=== PATIENT | male | born 1970 | race Caucasian/White ===

== ENCOUNTER 2017-09-18 13:26 | Emergency (ER) | payer OTHER ==
[~2017-09-18] VITALS: Ht 180.3 cm; Wt 100.0 kg
[2017-09-18] MEDS ORDERED: HYDR25TA PO (13:52)
[2017-09-18] MEDS ORDERED: ACETAMINOPHEN/CODEINE 300-30 MG TABLET PO ONE (18:15)
[2017-09-18] MEDS ORDERED: BUPIVACAINE HCL/PF 0.25% 10 ML VIAL INJ ONE (18:15)
[2017-09-18] MEDS ORDERED: POVIDONE-IODINE 10% 15 ML SOLUTION UD TP ONE (18:15)
[2017-09-18 19:23] VITALS: BP 144/92
== END 2017-09-18 19:25 | disposition home or self-care (01) ==
LOC: EMS 13:27
DX: L02.212 Cutaneous abscess of back [any part, except buttock and flank] (principal); I10 Essential (primary) hypertension
CPT/HCPCS: 10060; 99283; J3490

== ENCOUNTER 2018-03-10 05:17 | Emergency (ER) | payer OTHER ==
[~2018-03-10] VITALS: Ht 180.3 cm; Wt 100.0 kg
[~2018-03-10 05:17] MED LIST: HYDR25TA PO
[2018-03-10] MEDS ORDERED: NITROGLYCERIN 0.4 MG SUBLINGUAL TABLET #25 SL PRN (05:45)
[2018-03-10] MEDS ORDERED: HEPARIN SODIUM,PORCINE 5,000 UNITS/ML VIAL IVP ONE (05:45)
[2018-03-10] MEDS ORDERED: NITROGLYCERIN 2% (1 GM=INCH) PACKET TP ONE (05:45)
[2018-03-10] MEDS ORDERED: NITROGLYCERIN 0.3 MG SUBLINGUAL TABLET #100 SL ONE (05:45)
[2018-03-10] MEDS ORDERED: ASPIRIN 325 MG TABLET PO ONE (05:45)
[2018-03-10] MEDS ORDERED: TICAGRELOR 90 MG TABLET PO ONE (05:45)
[2018-03-10 05:52] VITALS: BP 163/119
[2018-03-10 06:16] LABS: BASOPHILS % (AUTO) 0.9 % (0.0-2.0); EOSINOPHILS % (AUTO) 2.8 % (1.0-6.0); HEMATOCRIT 48.7 % (41-53); HEMOGLOBIN 16.4 g/dL (13.5-17.5); LYMPHOCYTES % (AUTO) 20.2 % (22.0-44.0); MEAN CORPUSCULAR HEMOGLOBIN 29.2 pg (26.0-34.0); MEAN CORPUSCULAR HGB CONC 33.7 G/dL (31.0-37.0); MEAN CORPUSCULAR VOLUME 87 fL (80-100); MONOCYTES # (AUTO) 1.1 K/uL (0.1-1.0); MONOCYTES % (AUTO) 7.3 % (2.0-9.0); NEUTROPHILS # (AUTO) 10.1 K/uL (1.8-7.7); NEUTROPHILS % (AUTO) 68.8 % (40.0-70.0); PLATELET COUNT (AUTO) 312 K/uL (150-450); RED BLOOD CELL COUNT(AUTO) 5.62 MIL/uL (4.50-5.90); RED CELL DISTRIBUTION WIDTH 16.5 % (11.5-14.5)
[2018-03-10 06:24] LABS: ANION GAP 11 mmol/L (8-16); CALCIUM, TOTAL 8.8 mg/dL (8.8-10.5); CARBON DIOXIDE 24 mmol/L (22-29); CHLORIDE 104 mmol/L (98-107); CREATININE 1.23 mg/dL (0.60-1.30); GLOMERULAR FILTR. RATE CALC > 60 mL/min (>60); GLUCOSE,RANDOM 143 mg/dL (70-110); POTASSIUM 3.7 mmol/L (3.5-5.1); SODIUM SERUM 139 mmol/L (136-145); UREA NITROGEN, BLOOD 21 mg/dL (7-18)
[2018-03-10 06:29] LABS: INR 1.1 (0.9-1.1); PROTHROMBIN TIME 11.1 SEC (9.4-11.6)
[2018-03-10 06:51] LABS: ALANINE AMINOTRANSFERASE 132 U/L (12-78); ALKALINE PHOSPHATASE 114 U/L (46-116); ASPARTATE AMINOTRANSFERASE 286 U/L (15-37); B-TYPE NATRIURETIC PEPTIDE 403 pg/mL (0-100); BILIRUBIN,TOTAL 0.3 mg/dL (0.1-1.0); TOTAL PROTEIN, SERUM 6.6 g/dL (6.4-8.2)
[2018-03-10 06:55] LABS: CREATINE KINASE, TOTAL 2248 U/L (39-308)
[2018-03-10 08:26] LABS: CKMB RELATIVE INDEX 13.6 % (0.0-4.0); CREATINE KINASE MB 305.8 ng/mL (0-5)
== END 2018-03-10 06:04 | disposition short-term general hospital (02) ==
LOC: EMS 05:17
DX: I21.3 ST elevation (STEMI) myocardial infarction of unspecified site (principal); I10 Essential (primary) hypertension; J44.9 Chronic obstructive pulmonary disease, unspecified; F17.210 Nicotine dependence, cigarettes, uncomplicated
CPT/HCPCS: 36415; 71045; 80053; 82550; 82553; 83735; 83880; 84484; 85025; 85610; 85730; 93005; 96374; 99291; J1644; 99285

== ENCOUNTER 2018-09-17 11:10 | Emergency (ER) | payer OTHER ==
[~2018-09-17] VITALS: Ht 180.3 cm; Wt 106.8 kg
[2018-09-17] MEDS ORDERED: CLOP75TA32 PO (11:19)
[2018-09-17] MEDS ORDERED: ASPI81TA39 PO (11:19)
[2018-09-17] MEDS ORDERED: LISI-618 PO (11:19)
[2018-09-17] MEDS ORDERED: ATOR40TA28 PO (11:19)
[2018-09-17] MEDS ORDERED: METO25TA6 PO (11:19)
[2018-09-17 11:34] VITALS: BP 142/83
[2018-09-17] MEDS ORDERED: OXYMETAZOLINE HCL 0.05% 15 ML NASAL SPRAY NASAL ONE (12:45)
== END 2018-09-17 13:32 | disposition home or self-care (01) ==
LOC: EMS 11:10
DX: R04.0 Epistaxis (principal); I10 Essential (primary) hypertension; J44.9 Chronic obstructive pulmonary disease, unspecified; F17.210 Nicotine dependence, cigarettes, uncomplicated; Z79.82 Long term (current) use of aspirin; Z79.899 Other long term (current) drug therapy
CPT/HCPCS: 30901; 99282; 99284; 99406

== ENCOUNTER 2018-11-23 03:49 | Emergency (ER) | payer OTHER ==
[~2018-11-23] VITALS: Ht 180.3 cm; Wt 109.1 kg
[~2018-11-23 03:49] MED LIST changes: +ASPI81TA39 PO; +ATOR40TA28 PO; +CLOP75TA32 PO; +LISI-618 PO; +METO25TA6 PO
[2018-11-23 03:51] VITALS: BP 155/87
[2018-11-23] MEDS ORDERED: ATOR40TA28 PO (03:59)
[2018-11-23] MEDS ORDERED: SPIR25 PO (03:59)
[2018-11-23] MEDS ORDERED: LISI-662 PO (03:59)
== END 2018-11-23 04:35 | disposition left against medical advice (07) ==
LOC: EMS 03:49
DX: R04.0 Epistaxis (principal); J44.9 Chronic obstructive pulmonary disease, unspecified; E78.00 Pure hypercholesterolemia, unspecified; I10 Essential (primary) hypertension; I25.2 Old myocardial infarction; Z87.891 Personal history of nicotine dependence